=== PATIENT | female | born 1955 | race Caucasian/White ===

== ENCOUNTER → 2016-10-01 | Outpatient (CLI) | payer BC ==
[~2016-10-01] MED LIST: CARBAMAZEPINE200 M2 PO; TEGRETOL200 MG PO
== END ==
LOC: RAD 02:52
DX: Z12.31 Encounter for screening mammogram for malignant neoplasm of breast (principal)

== ENCOUNTER 2017-11-22 10:54 | Emergency (ER) | payer BC ==
[~2017-11-22] VITALS: Ht 170.2 cm; Wt 81.7 kg
[2017-11-22 11:10] VITALS: BP 103/73
[2017-11-22 12:26] LABS: CALCIUM 9.5 mg/dL (8.5-10.1); CREATININE 0.6 mg/dL (0.6-1.0); POTASSIUM 4.4 mmol/L (3.5-5.1)
[2017-11-22 12:55] LABS: HEMATOCRIT 38.9 % (37.0-47.0); HEMOGLOBIN 13.9 gm/dL (12.0-15.0); MCH 34.5 pg (26.0-34.0); MCHC 35.7 g/dL (28.0-37.0); MCV 96.8 fL (80.0-100.0); RBC 4.02 mil/uL (4.20-5.00); RDW 12.8 % (10.5-14.5); WBC 5.1 thou/uL (4.0-11.0)
[2017-11-22] MEDS ORDERED: IBUPROFEN 600600 M1 PO (14:54)
[2017-11-22 15:53] VITALS: BP 103/73
== END 2017-11-22 15:30 | disposition home or self-care (01) ==
LOC: ER 10:54 → EROBS 13:54 → ER 15:30
PROVIDERS: Physician Assistant
DX: R25.2 Cramp and spasm (principal); G40.909 Epilepsy, unspecified, not intractable, without status epilepticus; E87.1 Hypo-osmolality and hyponatremia

== ENCOUNTER → 2019-04-21 | Outpatient (CLI) | payer OTHER, BC ==
[~2019-04-21] MED LIST changes: +IBUPROFEN 600600 M1 PO
== END ==
LOC: RAD 11:08
DX: M48.061 Spinal stenosis, lumbar region without neurogenic claudication (principal); M43.16 Spondylolisthesis, lumbar region

== ENCOUNTER → 2019-04-26 | Outpatient (CLI) | payer OTHER, BC | LOC: BC 10:00 | DX: Z12.31 Encounter for screening mammogram for malignant neoplasm of breast (principal) ==

== ENCOUNTER → 2019-07-24 | Outpatient (CLI) | payer OTHER, BC | LOC: RAD 12:22 | PROVIDERS: ATTEND Nurse Practitioner | DX: M47.26 Other spondylosis with radiculopathy, lumbar region (principal); M43.16 Spondylolisthesis, lumbar region ==

== ENCOUNTER 2019-11-29 14:17 | Emergency (ER) | payer OTHER, BC ==
[~2019-11-29] VITALS: Ht 170.2 cm; Wt 86.2 kg
[2019-11-29 14:19] VITALS: BP 148/79
[2019-11-29] MEDS ORDERED: LAMOTRIGINE250 MG PO (14:45)
[2019-11-29 14:47] LABS: URINE BILIRUBIN NEGATIVE (Negative); URINE BLOOD TRACE (Negative); URINE CLARITY CLEAR; URINE COLOR YELLOW; URINE GLUCOSE-RANDOM* NEGATIVE (Negative); URINE KETONES NEGATIVE (Negative); URINE LEUKOCYTES-REFLEX NEGATIVE (Negative); URINE NITRITE-REFLEX NEGATIVE (Negative); URINE PROTEIN (DIPSTICK) NEGATIVE (Negative); URINE SPECIFIC GRAVITY 1.025 (1.005-1.035); URINE UROBILINOGEN 0.2 E.U./dl (0.2-1.0)
[2019-11-29 14:50] LABS: ABSOLUTE NEUTROPHILS 6.1 thou/uL (1.4-8.2); BASOPHILS 0.6 % (0.0-2.0); EOSINOPHILS 0.5 % (0.0-3.0); HEMATOCRIT 39.4 % (37.0-47.0); HEMOGLOBIN 13.4 gm/dL (12.0-15.0); LYMPHOCYTES 20.3 % (24.0-44.0); MCH 32.3 pg (26.0-34.0); MCV 94.9 fL (80.0-100.0); MONOCYTES 10.4 % (1.0-8.0); PLATELET COUNT 276 thou/uL (150-400); POLYS 68.2 % (36.0-66.0); RBC 4.15 mil/uL (4.20-5.00); RDW 12.8 % (10.5-14.5); WBC 8.9 thou/uL (4.0-11.0)
[2019-11-29 15:02] LABS: CREATININE 0.9 mg/dL (0.6-1.0); POTASSIUM 4.2 mmol/L (3.5-5.1)
[2019-11-29 15:07] LABS: ALBUMIN 3.6 g/dL (3.4-5.0); MAGNESIUM 2.2 mg/dL (1.8-2.4); TOTAL BILIRUBIN 0.3 mg/dL (0.2-1.0); TOTAL PROTEIN 7.4 g/dL (6.4-8.2)
== END 2019-11-29 15:12 | disposition home or self-care (01) ==
LOC: ER 14:17
PROVIDERS: Physician Assistant
DX: R56.9 Unspecified convulsions (principal); Z79.899 Other long term (current) drug therapy

== ENCOUNTER → 2020-04-29 | Outpatient (CLI) | payer OTHER, BC ==
[~2020-04-29] MED LIST changes: +LAMOTRIGINE250 MG PO
== END ==
LOC: BC 08:57
PROVIDERS: ATTEND Nurse Practitioner
DX: Z12.31 Encounter for screening mammogram for malignant neoplasm of breast (principal)

== ENCOUNTER 2020-05-01 14:01 | Emergency (ER) | payer OTHER, BC ==
[~2020-05-01] VITALS: Ht 167.6 cm; Wt 68.0 kg
[2020-05-01] MEDS ORDERED: ZONEGRAN50 MG PO (14:06)
[2020-05-01 14:42] LABS: BASOPHILS 0.9 % (0.0-2.0); EOSINOPHILS 0.7 % (0.0-3.0); HEMATOCRIT 38.7 % (37.0-47.0); LYMPHOCYTES 23.4 % (24.0-44.0); MCH 32.3 pg (26.0-34.0); MCHC 33.6 g/dL (28.0-37.0); MONOCYTES 10.5 % (1.0-8.0); PLATELET COUNT 274 thou/uL (150-400); POLYS 64.5 % (36.0-66.0); RBC 4.04 mil/uL (4.20-5.00); RDW 13.2 % (10.5-14.5); WBC 7.7 thou/uL (4.0-11.0)
[2020-05-01 14:50] LABS: CALCIUM 8.8 mg/dL (8.5-10.1); POTASSIUM 3.8 mmol/L (3.5-5.1)
[2020-05-01 14:56] LABS: ALBUMIN 3.6 g/dL (3.4-5.0); TOTAL BILIRUBIN 0.4 mg/dL (0.2-1.0); TOTAL PROTEIN 7.2 g/dL (6.4-8.2)
[2020-05-01] MEDS ORDERED: ZONEGRAN100 MG PO (15:39)
[2020-05-01 15:45] LABS: URINE BILIRUBIN NEGATIVE (Negative); URINE BLOOD NEGATIVE (Negative); URINE CLARITY CLEAR; URINE COLOR YELLOW; URINE GLUCOSE-RANDOM* NEGATIVE (Negative); URINE KETONES NEGATIVE (Negative); URINE LEUKOCYTES-REFLEX NEGATIVE (Negative); URINE NITRITE-REFLEX NEGATIVE (Negative); URINE PROTEIN (DIPSTICK) NEGATIVE (Negative); URINE SPECIFIC GRAVITY 1.015 (1.005-1.035); URINE UROBILINOGEN 0.2 E.U./dl (0.2-1.0)
[2020-05-01 16:08] VITALS: BP 133/74
== END 2020-05-01 16:10 | disposition home or self-care (01) ==
LOC: ER 14:01
PROVIDERS: Emergency Medicine
DX: R56.9 Unspecified convulsions (principal); Z79.899 Other long term (current) drug therapy

== ENCOUNTER 2021-02-05 15:03 | Emergency (ER) | payer OTHER, BC ==
[~2021-02-05] VITALS: Ht 170.2 cm; Wt 81.4 kg
[~2021-02-05 15:03] MED LIST changes: +ZONEGRAN100 MG PO; +ZONEGRAN50 MG PO
[2021-02-05 15:54] LABS: ABSOLUTE NEUTROPHILS 4.2 thou/uL (1.4-8.2); BASOPHILS 0.4 % (0.0-2.0); EOSINOPHILS 0.2 % (0.0-3.0); HEMATOCRIT 40.5 % (37.0-47.0); HEMOGLOBIN 13.6 gm/dL (12.0-15.0); LYMPHOCYTES 28.6 % (24.0-44.0); MCH 32.4 pg (26.0-34.0); MCHC 33.6 g/dL (28.0-37.0); MCV 96.6 fL (80.0-100.0); MONOCYTES 8.4 % (1.0-8.0); PLATELET COUNT 261 thou/uL (150-400); POLYS 62.4 % (36.0-66.0); RBC 4.19 mil/uL (4.20-5.00); WBC 6.7 thou/uL (4.0-11.0)
[2021-02-05 15:59] LABS: CALCIUM 9.2 mg/dL (8.5-10.1); CREATININE 0.8 mg/dL (0.6-1.0); POTASSIUM 4.1 mmol/L (3.5-5.1)
[2021-02-05 16:10] LABS: ALBUMIN 3.9 g/dL (3.4-5.0); TOTAL BILIRUBIN 0.8 mg/dL (0.2-1.0); TOTAL PROTEIN 7.3 g/dL (6.4-8.2)
[2021-02-05 16:50] VITALS: BP 102/50
--- NOTE | 2021-02-06 07:46 | EKG ---
[place] [address] [facility] [email or web address] [address] ELECTROCARDIOGRAM REPORT Name: ADAM HAJI EVERETTE Room #: DEP [facility]#: [id number] Admission: 02/05/21 Attend Phys: Discharge: 02/05/21 Date of : 57 Report #: [id number] [facility] ED Test Date: 2021-02-05 Test Time: 15:55:25 Pat Name: ADAM HAJI Department: Room: Gender: F [employer]: theodore : 1955 Requested By: Virginia Fowler Order Number: [id number] MD: Vic Brooks Measurements Intervals [place] Rate: 73 P: 42 [place]: 193 QRS: 54 QRSD: 92 T: 23 QT: 403 QTc: 444 Interpretive Statements Sinus rhythm Probable left atrial enlargement Low voltage, precordial leads RSR' in V1 or V2, probably normal variant Compared to ECG 02/06/2008 23:21:18 Low QRS voltage now present RSR' in V1 or V2 now present Sinus bradycardia no longer present Electronically Signed On 02-06-2021 7:46:19 RN RADIATION ONCOLOGY by Vic Brooks [email or web address] <ELECTRONICALLY SIGNED> By: Vic Brooks MD, FACC 02/06/21 0746 1555 1555 Vic Brooks MD, FAC /EPI
== END 2021-02-05 17:15 | disposition home or self-care (01) ==
LOC: ER 15:03
PROVIDERS: Emergency Medicine
DX: R55 Syncope and collapse (principal); G40.909 Epilepsy, unspecified, not intractable, without status epilepticus; Z79.899 Other long term (current) drug therapy

== ENCOUNTER 2021-04-09 13:39 | Emergency (ER) | payer OTHER, BC ==
[~2021-04-09] VITALS: Ht 170.2 cm; Wt 65.8 kg
[2021-04-09 13:40] VITALS: BP 109/84
== END 2021-04-09 15:43 | disposition home or self-care (01) ==
LOC: ER 13:39
DX: G40.909 Epilepsy, unspecified, not intractable, without status epilepticus (principal); Z79.899 Other long term (current) drug therapy